=== PATIENT | female | born 1980 | race African-American/Black ===

== ENCOUNTER 2016-08-28 07:17 | Emergency (ER) | payer OTHER ==
[2016-08-28 07:36] VITALS: BMI 39.9
[2016-08-28] MEDS ORDERED: ACETAMINOPHEN INJECTION 100 ML IVPB ONE (07:49)
[2016-08-28] MEDS ORDERED: ACETAMINOPHEN 1000 MG/100 ML VIAL (NON FORMULARY) IVPB ONE (08:07)
[2016-08-28] MEDS ORDERED: SODIUM CHLORIDE 1,000 ML IV STA (08:07)
--- NOTE | 2016-08-28 08:22 | PDOC ---
History of Present Illness - General Chief Complaint: Pain Stated Complaint: ABDOMINAL PAIN (19 WEEKS) Time Seen by Provider: 08/28/16 08:04 - History of Present Illness Initial Comments: 08/28/16 08:21 35-year-old female whose last menstrual period was 04/18, and is 19.5 weeks She gets her care with Dr. Mckeon G3 TAB 1 P1 Patient states she was fine when she went to bed last night She awakened at 5:30 this morning with severe pelvic cramping, nausea and vomiting She denies any vaginal spotting or bleeding, and she denies any fluid from her vagina She denies any recent intercurrent illnesses She denies any dysuria urgency or frequency She states that things of been going well with on her care Past History - Past Medical History Allergies/Adverse Reactions: Allergies Allergy/AdvReac Type Severity Reaction Status Date / Time No Known Allergies Allergy Verified 08/28/16 09:38 Home Medications: Ambulatory Orders Vit/Iron Fumarate/FA [ Tablet] 1 each PO DAILY 08/28/16 Other medical history: PT DENIES MEDICAL HX - Reproductive History Is Patient Now?: Yes (#): 3 Para: 1 Cervical CA: No Dysfunctional Uterine Bleeding: No Ectopic : No Endometrial CA: No Polycystic Ovaries: No Tubal Ligation: No - Psycho/Social/Smoking Cessation Hx Anxiety: No Suicidal Ideation: No Smoking History: Never smoked Information on smoking cessation initiated: No Hx Alcohol Use: No Drug/Substance Use Hx: No *Physical Exam - Vital Signs Last Vital Signs Temp Pulse Resp BP Pulse Ox 98.6 F 102 H 22 108/55 100 08/28/16 07:34 08/28/16 07:34 08/28/16 07:34 08/28/16 07:34 08/28/16 07:34 - Physical Exam Comments: 08/28/16 08:36 Physical exam Last Vital Signs Temp Pulse Resp BP Pulse Ox 98.6 F 102 H 22 108/55 100 08/28/16 07:34 08/28/16 07:34 08/28/16 07:34 08/28/16 07:34 08/28/16 07:34 Patient is alert and answering questions Head is normocephalic and atraumatic Neck supple Lungs clear Heart regular Abdomen- The fundal height is approximately 20 weeks, appropriate for gestational age The abdomen is soft and nontender Vaginal introitus There is no blood or fluid leaking from the vaginal introitus There is no pedal edema Grossly nonfocal neurologic exam ED Treatment Course - LABORATORY CBC & Chemistry Diagram: 08/28/16 08:40 08/28/16 09:08 - RADIOLOGY Radiology Studies Ordered: Category Date Time Status LIMITED US [US] Stat Ultrasound 08/28/16 07:46 Ordered - Medications Given in the ED: ED Medications Discontinued Medications Generic Name Dose Route Start Last Admin Trade Name Justin PRN Reason Stop Dose Admin Acetaminophen 1,000 mg 08/28/16 08:07 08/28/16 08:07 Ofirmev Injection - IVPB 08/28/16 08:08 1,000 mg NOW ONE Administration Medical Decision Making - Medical Decision Making 08/28/16 08:21 Case discussed with - patient 19.5 weeks Will send directly to L&D as per OB right after her ultrasound 08/28/16 08:38 Stat OB ultrasound Single viable intrauterine gestation, 19 weeks 5 days heart rate 137 Posterior placenta Partially visualized structures-no gross sonographic abnormality Amniotic fluid volume normal Cervix is closed and measuring 5.3 cm in length Blood work drawn-will send to L&D Possible labor, threatened AB Transfer up to L&D now as per OB Laboratory Results - last 24 hr 08/28/16 08/28/16 08/28/16 08:40 08:50 09:08 WBC 10.4 H RBC 4.75 Hgb 11.3 Hct 33.4 MCV 70.4 L MCHC 33.7 RDW 16.0 H Plt Count 148 MPV 9.8 Sodium 138 Potassium 3.8 Chloride 104 Carbon Dioxide 25 Anion Gap 9 BUN 3 L Creatinine 0.6 Creat Clearance w eGFR > 60 Random Glucose 110 H Calcium 8.1 L Total Bilirubin 0.2 AST 14 L ALT 19 Alkaline Phosphatase 66 Total Protein 6.6 Albumin 3.0 L Beta HCG, Quant 23973.0 Urine Color Urine Appearance Urine pH Ur Specific [place] Urine Protein Urine Glucose (UA) Urine Ketones Urine Blood Urine Nitrite Urine Bilirubin Urine Urobilinogen Ur Leukocyte Esterase Blood Type O NEGATIVE Antibody Screen Negative Spec Expiration Date 08/28/16 10:32 WBC RBC Hgb Hct MCV MCHC RDW Plt Count MPV Sodium Potassium Chloride Carbon Dioxide Anion Gap BUN Creatinine Creat Clearance w eGFR Random Glucose Calcium Total Bilirubin AST ALT Alkaline Phosphatase Total Protein Albumin Beta HCG, Quant Urine Color Ltyellow Urine Appearance Clear Urine pH 6.0 Ur Specific [place] 1.019 Urine Protein Negative Urine Glucose (UA) Negative Urine Ketones Negative Urine Blood Negative Urine Nitrite Negative Urine Bilirubin Negative Urine Urobilinogen Negative Ur Leukocyte Esterase Negative Blood Type Antibody Screen Spec Expiration Date *DC/Admit/Observation/Transfer Diagnosis at time of Disposition: labor, Threatened - Discharge Dispostion Admit: Yes - Referrals Referrals: Yulia Tim MD [Staff Physician] - (DISCHARGE HOME; DRINK PLENTY OF FLUIDS; PICK PRESCRIPTION AT HER PHARMACY AND TAKE DIRECTED; IF PAIN INCREASES CALL MD; ANY QUESTIONS/PROBLEMS CALL MD OR LABOR AREA ; IF NO CHANGE FOLLOW UP IN OFFICE THIS WEEK;)
[2016-08-28 08:56] LABS: MCH 23.7 pg (25.7-33.7); MCHC 33.7 g/dl (32.0-36.0); MEAN CELL VOLUME 70.4 fl (80-96); MEAN PLT VOLUME 9.8 fl (7.5-11.1); PLATELET COUNT 148 K/MM3 (134-434); WHITE BLOOD COUNT 10.4 K/mm3 (4.0-10.0)
[2016-08-28 09:49] LABS: ANION GAP 9 (8-16); BILIRUBIN,TOTAL 0.2 mg/dL (0.2-1.0); CALCIUM 8.1 mg/dL (8.5-10.1); CO2 25 mmol/L (21-32); CREATININE 0.6 mg/dL (0.55-1.02); GLUCOSE,RANDOM 110 mg/dL (74-106); SGOT/AST 14 U/L (15-37); SGPT/ALT 19 U/L (12-78); TOT PROT 6.6 g/dl (6.4-8.2)
[2016-08-28 10:04] LABS: ALK PHOS 66 U/L (45-117)
[2016-08-28] MEDS ORDERED: AMPICILLIN - 2 GM in SODIUM CHLORIDE 100 ML IVPB ONE (10:30)
[2016-08-28 10:36] VITALS: TEMP 97.5
[2016-08-28 11:44] LABS: URINE APPEARANCE CLEAR; URINE BILIRUBIN NEGATIVE (NEGATIVE); URINE BLOOD NEGATIVE (NEGATIVE); URINE COLOR LTYELLOW; URINE GLUCOSE (UA) NEGATIVE (NEGATIVE); URINE KETONE NEGATIVE (NEGATIVE); URINE LEUK ESTERASE NEGATIVE (NEGATIVE); URINE NITRITE NEGATIVE (NEGATIVE); URINE PROTEIN NEGATIVE (NEGATIVE); URINE UROBILINOGEN NEGATIVE E.U./dl (0.2-1.0)
--- NOTE | 2016-08-28 12:26 | PN ---
Progress Note (short form) - Note Progress Note: 35yo EGA 19.5 weeks EDC 01/23/17 with co right lower abd pain radiating to back and right leg pain no vaginal bleeding pt with c/o urinary freq more than usual. Pt improved after hydration and ancef Vital Signs Period Temp Pulse Resp BP Sys/Muir Pulse Ox Last 24 Hr 97.5 F-98.6 F 83-102 20-22 105-123/55-74 100-100 Laboratory Results - last 24 hr 08/28/16 08/28/16 08/28/16 08:40 08:50 09:08 WBC 10.4 H RBC 4.75 Hgb 11.3 Hct 33.4 MCV 70.4 L MCHC 33.7 RDW 16.0 H Plt Count 148 MPV 9.8 Sodium 138 Potassium 3.8 Chloride 104 Carbon Dioxide 25 Anion Gap 9 BUN 3 L Creatinine 0.6 Creat Clearance w eGFR > 60 Random Glucose 110 H Calcium 8.1 L Total Bilirubin 0.2 AST 14 L ALT 19 Alkaline Phosphatase 66 Total Protein 6.6 Albumin 3.0 L Beta HCG, Quant 85127.0 Urine Color Urine Appearance Urine pH Ur Specific [place] Urine Protein Urine Glucose (UA) Urine Ketones Urine Blood Urine Nitrite Urine Bilirubin Urine Urobilinogen Ur Leukocyte Esterase Blood Type O NEGATIVE Antibody Screen Negative Spec Expiration Date 08/28/16 10:32 WBC RBC Hgb Hct MCV MCHC RDW Plt Count MPV Sodium Potassium Chloride Carbon Dioxide Anion Gap BUN Creatinine Creat Clearance w eGFR Random Glucose Calcium Total Bilirubin AST ALT Alkaline Phosphatase Total Protein Albumin Beta HCG, Quant Urine Color Ltyellow Urine Appearance Clear Urine pH 6.0 Ur Specific [place] 1.019 Urine Protein Negative Urine Glucose (UA) Negative Urine Ketones Negative Urine Blood Negative Urine Nitrite Negative Urine Bilirubin Negative Urine Urobilinogen Negative Ur Leukocyte Esterase Negative Blood Type Antibody Screen Spec Expiration Date VSS afebrile abd soft nt sve lcp no cmt uterus 19cm adnexa wnl ext no edema ass iup at 19.5 week ro uti possible round ligament pain dc home on po abs tylenol prn amoxicillin x 3 days
[2016-08-28 12:49] VITALS: BP 120/73; PULSE 76
== END 2016-08-28 12:30 | disposition home or self-care (01) ==
LOC: JER 07:17
PROC: 3E033NZ Introduction of Analgesics, Hypnotics, Sedatives into Peripheral Vein, Percutaneous Approach (ICD-10-PCS; principal; 2016-08-28)
DX: O20.0 Threatened abortion (principal); Z3A.19 19 weeks gestation of pregnancy
CPT/HCPCS: 36415; 76815-TC; 80053; 81003; 84702; 85027; 86850; 86900; 86901; 87086; 96374; 99283-25

== ENCOUNTER 2017-01-20 04:00 | Inpatient (IN) | payer OTHER ==
--- NOTE | 2017-01-20 05:41 | HP ---
Past Medical History - Primary Care Physician PCP:: Yulia Tim - Admission Chief Complaint: Labor History of Present Illness: 36 yo EDC EGA 39.4 weeks with c/o srom and labor AMA Rh neg Fibroids Sickle cell trait hydraden Pt desires natural plan. No IV, meds limited exams Intermittent monitoring History Source: Patient - Past Medical History ...: 3 ...Para: 1 ...EDC by Sono: 01/23/17 Endocrine: Yes: Other (Hyd) - Past Surgical History Past Surgical History: Yes: None Hx Myomectomy: No Hx Transabdominal Cerclage: No - Smoking History Smoking history: Never smoked - Alcohol/Substance Use Hx Alcohol Use: No History of Substance Use: reports: None - Social History Usual Living Arrangement: Yes: With Spouse History of Recent Travel: No Home Medications - Allergies Allergies/Adverse Reactions: Allergies Allergy/AdvReac Type Severity Reaction Status Date / Time No Known Allergies Allergy Verified 08/28/16 09:38 - Home Medications Home Medications: Ambulatory Orders Vit/Iron Fumarate/FA [ Tablet] 1 each PO DAILY 08/28/16 Review of Systems - Review of Systems Constitutional: reports: No Symptoms Eyes: reports: No Symptoms HENT: reports: No Symptoms Neck: reports: No Symptoms Cardiovascular: reports: No Symptoms Respiratory: reports: No Symptoms Gastrointestinal: reports: No Symptoms Genitourinary: reports: No Symptoms Breasts: reports: No Symptoms Reported Musculoskeletal: reports: No Symptoms Integumentary: reports: No Symptoms Neurological: reports: No Symptoms Endocrine: reports: No Symptoms Hematology/Lymphatic: reports: No Symptoms Psychiatric: reports: No Symptoms Physical Exam - Maternity Constitutional: Yes: Well Nourished, No Distress Neck: Yes: WNL Cardiovascular: Yes: WNL, Regular Rate and Rhythm Lungs: Clear to auscultation Breast(s): Yes: WNL - Abdominal Exam/OB Fundal Height: 39 Number of Fetuses: Single Presentation: Vertex Contractions: Yes Regularity: Regular Intensity: Moderate Monitor Mode: External Decelerations: Early - Vaginal Exam/OB Dilatation (cm): 6-7 Effacement (%): 100 Amniotic Membrane Status: Ruptured Presentation: Vertex/Position Station: -1 - Physical Exam Musculoskeletal: Yes: WNL Extremities: Yes: WNL Edema: No Hemorrhage Risk Assessment - Risk Factors Risk Score: 1 Risk Level: Medium Risk Problem List - Problems (1) Labor established Code(s): [id number] - (2) Spontaneous rupture of membranes Code(s): EHC6136 - Assessment/Plan IUP at 39.4 weeks Cat 1 refusing freq exams refusing monitoring tracing refusing IV plan reviewed AMA Plan continue intermittent monitoring
[2017-01-20 05:46] LABS: BASOPHIL 0.2 % (0-2.0); EOSINOPHIL 0.8 % (0-4.5); MCH 21.5 pg (25.7-33.7); MCHC 32.5 g/dl (32.0-36.0); MEAN CELL VOLUME 66.1 fl (80-96); MEAN PLT VOLUME 9.2 fl (7.5-11.1); NEUTROPHILS 80.1 % (42.8-82.8); PLATELET COUNT 158 K/MM3 (134-434); RDW 20.3 % (11.6-15.6); WHITE BLOOD COUNT 9.9 K/mm3 (4.0-10.0)
[2017-01-20 05:48] VITALS: BMI 34.0
[2017-01-20 06:04] LABS: INR 0.96 (0.82-1.09); PROTHROMBIN TIME (PATIENT) 10.6 SEC (9.98-11.88)
[2017-01-20 06:07] LABS: ACTIVATED PTT 28.3 SECONDS (26.9-34.4)
[2017-01-20 06:11] LABS: ANION GAP 10 (8-16); CALCIUM 8.7 mg/dL (8.5-10.1); CO2 23 mmol/L (21-32); CREATININE 0.6 mg/dL (0.55-1.02); GLUCOSE,RANDOM 104 mg/dL (74-106)
[2017-01-20] MEDS ORDERED: BUTORPHANOL TARTRATE 1 MG/ML VIAL IVPB ONE (08:50)
[2017-01-20] MEDS ORDERED: PROMETHAZINE HCL 25 MG/1 ML VIAL IVPUSH ONE (08:50)
--- NOTE | 2017-01-20 10:56 | PN ---
Ante-Partal Exam - Subjective Subjective: Patient tolerating contractions. Vital Signs: Vital Signs Temperature 98.0 F 01/20/17 07:30 Pulse Rate 106 H 01/20/17 07:30 Respiratory Rate 14 01/20/17 07:30 Blood Pressure 101/59 01/20/17 07:30 O2 Sat by Pulse Oximetry (%) Bleeding: No Headache: No Visual changes: No Right upper quadrant pain: No Pain (scale 1-10): 8 - Contractions Contractions: Yes Regularity: Irregular Intensity: Mod/Strong Monitor Mode: External - Exam during Labor Heart Rate: 145 Variability: Moderate Category: I Exam: Vaginal Dilatation (cm): 9.5 Effacement (%): 90 Amniotic Membrane Status: Ruptured Presentation: Vertex Station: 0 - Assessment/Plan Assessment/Plan: Patient tolerating contractions S/P Stadol and Phenergan around 8am Nurse Material Lister and Social Work spoke with patient at length regarding pt refusal of Vitamin K and Erythromycin eye ointment after delivery - patient and family aware of necessary steps to take after baby born Pt 9cm dilated at this time, not ready to push will re evaluate in 30-45 minutes to see if patient ready to push
[2017-01-20] MEDS ORDERED: DEXTROSE 5%-LACTATED RINGERS 1,000 ML IV SCH (11:15)
--- NOTE | 2017-01-20 12:59 | PN ---
Delivery - Delivery Vaginal Delivery: No Problems Type of Anesthesia: None Episiotomy/Laceration: None, 1st degree (small superficial abrasion - hemostatic - no sutures placed) EBL (cc): 500 Delivery, Single - Stages of Labor Date 1st Stage Initiatied: 01/20/17 Date of Delivery: 01/20/17 Time of Delivery: 12:19 Date Placenta Delivered: 01/20/17 Time Placenta Delivered: 12:38 Placenta: Yes: Spontaneous - Condition of Infant Gender: Male Position: Left, OA - 1 Minute Total Score: 9 5 Minutes Total Score: 10 - [place] Feeding Plan Initial Plan: Exclusive throughout hospitalization Remarks - Remarks Remarks: By the time I arrived, baby had delivered without complication by Nurse Trav from ANDRES position Apgars 9/10 after delayed cord clamping, cord clamped and cut placenta delivered in tact small abrasion noted on posterior vagina, not bleeding, no sutures placed some bleeding noted s/p delivery, bimanual examination performed, blood clots removed from uterus lochia improved oxytocin infusing EBL total 500cc mom stable baby nursing baby to well baby nursery s/p delivery
[2017-01-20] MEDS ORDERED: OXYTOCIN 20 UNITS in 0.9% NS 1,000 ML IV SCH (13:00)
[2017-01-20] MEDS ORDERED: BISACODYL 10 MG SUPP.RECT RC PRN (13:00)
[2017-01-20] MEDS ORDERED: IBUPROFEN 600 MG TABLET (FP) PO PRN (13:00)
[2017-01-20] MEDS ORDERED: METHYLERGONOVINE MALEATE 0.2 MG/1 ML AMP IM PRN (13:00)
[2017-01-20] MEDS ORDERED: BENZOCAINE 28 GM HEMORRHOIDAL OINTMENT TP PRN (13:00)
[2017-01-20] MEDS ORDERED: BENZOCAINE 20% 57 GM BOTTLE TP PRN (13:00)
[2017-01-20] MEDS ORDERED: WITCH HAZEL 50% (TUCKS) 40 PAD/JAR PAD TP PRN (13:00)
[2017-01-20] MEDS ORDERED: ACETAMINOPHEN 325 MG TABLET (FP) PO PRN (13:00)
[2017-01-20 13:28] LABS: ANISOCYTOSIS 2+; HYPOCHROMIA 2+; MICROCYTOSIS 2+; TARGET CELLS 2+
[2017-01-20] MEDS: FERROUS SO4 325 MG TABLET (FP) PO SCH (17:46)
--- NOTE | 2017-01-21 05:26 | PN ---
Post Note - Post Date of Delivery: 01/20/17 Vital Signs: Vital Signs - 24 hr 01/20/17 01/20/17 01/20/17 07:30 12:45 13:00 Temperature 98.0 F Pulse Rate 106 H 95 H Respiratory 14 18 Rate Blood Pressure 101/59 122/75 O2 Sat by Pulse 100 99 Oximetry (%) 01/20/17 01/20/17 01/20/17 13:15 13:30 13:45 Temperature 97.7 F Pulse Rate 97 H 98 H 97 H Respiratory 18 18 18 Rate Blood Pressure 127/75 126/76 127/75 O2 Sat by Pulse 100 100 Oximetry (%) 01/20/17 01/20/17 15:26 17:55 Temperature 98.1 F 98.5 F Pulse Rate 106 H 109 H Respiratory 18 18 Rate Blood Pressure 128/76 116/59 O2 Sat by Pulse Oximetry (%) Labs: Laboratory Results - last 24 hr 01/20/17 01/20/17 01/20/17 04:50 04:50 04:50 WBC 9.9 RBC 5.34 H Hgb 11.5 Hct 35.3 MCV 66.1 L MCH 21.5 L MCHC 32.5 RDW 20.3 H D Plt Count 158 MPV 9.2 Neutrophils % 80.1 Lymphocytes % 12.4 Monocytes % 6.5 Eosinophils % 0.8 Basophils % 0.2 Hypochromic-Microcytic 2+ Anisocytosis 2+ Microcytosis 2+ Target Cells 2+ INR 0.96 PTT (Actin FS) 28.3 Sodium 137 Potassium 4.0 Chloride 104 Carbon Dioxide 23 Anion Gap 10 BUN 5 L D Creatinine 0.6 Random Glucose 104 Calcium 8.7 RPR Titer Blood Type Antibody Screen Screen Baby's Blood Type Unit Expiration Date 01/20/17 01/20/17 01/20/17 04:50 04:50 13:20 WBC RBC Hgb Hct MCV MCH MCHC RDW Plt Count MPV Neutrophils % Lymphocytes % Monocytes % Eosinophils % Basophils % Hypochromic-Microcytic Anisocytosis Microcytosis Target Cells INR PTT (Actin FS) Sodium Potassium Chloride Carbon Dioxide Anion Gap BUN Creatinine Random Glucose Calcium RPR Titer Nonreactive Blood Type O NEGATIVE Antibody Screen Negative Screen Cancelled Baby's Blood Type Cancelled Unit Expiration Date Cancelled - Subjective Subjective: No Complaints - Objective Afebrile: Yes Breast: Not engorged Abdomen: Soft, Non-tender Uterus: Fundus firm, Non-tender Vagina: Scant lochia Extremities: Non-tender - Assessment/Plan (1) Labor established Assessment: S/P Normal Plan: Routine Care
--- NOTE | 2017-01-21 05:26 | DS ---
Physical Exam-REGISTERED NURSE OBSTETRICS Vital Signs: Vital Signs Temperature 98.5 F 01/20/17 17:55 Pulse Rate 109 H 01/20/17 17:55 Respiratory Rate 18 01/20/17 17:55 Blood Pressure 116/59 01/20/17 17:55 O2 Sat by Pulse Oximetry (%) 100 01/20/17 13:30 Constitutional: Yes: Well Nourished, No Distress Neck: Yes: WNL Cardiovascular: Yes: WNL Respiratory: Yes: WNL Gastrointestinal: Yes: WNL ....Post : Yes: Uterus firm, Uterus non-tender Breast(s): Yes: WNL Musculoskeletal: Yes: WNL Edema: No Neurological: Yes: WNL, Alert, Oriented Labs: CBC, BMP 01/20/17 04:50 01/20/17 04:50 Delivery - Delivery Vaginal Delivery: No Problems Type of Anesthesia: None Episiotomy/Laceration: None, 1st degree (small superficial abrasion - hemostatic - no sutures placed) EBL (cc): 500 Delivery, Single - Stages of Labor Date 1st Stage Initiatied: 01/20/17 Time 1st Stage Initiated: 22:00 Date 2nd Stage Initiated: 01/20/17 Time 2nd Stage Initiated: 12:14 Date of Delivery: 01/20/17 Time of Delivery: 12:19 Time Placenta Delivered: 12:38 Placenta: Yes: Spontaneous - Condition of Grain Buyer/Tank Cleaner Present: No Infant Gender: Male Weight: 7 lb 11 oz Position: Left, OA Total Hours ROM (Hrs/Mins): 8/48 - 1 Minute Total Score: 9 5 Minutes Total Score: 10 - Feeding Plan Initial Plan: Exclusive throughout hospitalization Discharge Summary Reason For Visit: LABOR ADMIT Current Active Problems Labor established (Acute) Spontaneous rupture of membranes (Acute) Condition: Good - Instructions Diet, Activity, Other Instructions: Physical activity Resume your normal everyday activity as tolerated no heavy lifting or exercise until seen by your surgeon. You may walk unlimited sang of and climb stairs. You may resume driving the car when you feel safe and comfortable behind the wheel. No sexual activity as instructed. Wound care If you have a bandage, leave it on, and keep dry for 48-72 hours. After that time discard the outer bandage. If they are tapes on the skin under the out of bandage leave them in place. They will peel off in the next 7 to 10 days. Do Not Peel them off. You may shower the day after surgery. If there are tapes present on the skin, you may shower over them. Diet There are no dietary restrictions. Eat healthy, high-fiber foods. Drink 6 to 8 glasses of liquid each day. This will assist in keeping your bowels are regular. Pain management You may take Tylenol or acetaminophen or Ibuprofen (for example, Motrin, Advil etc.) from my pain prescription medication is ordered should be taken as prescribed for moderate to severe pain. Call MD for any of the following: Severe pain not relieved by medication Fever of 101 or higher Excessive bleeding or drainage on dressing Inability to urinate Referrals: Yulia Tim MD [Staff Physician] - Disposition: HOME - Home Medications Comprehensive Discharge Medication List: Ambulatory Orders Vit/Iron Fumarate/FA [ Tablet] 1 each PO DAILY 08/28/16 Ibuprofen [Motrin -] 600 mg PO QID PRN #28 tablet 01/21/17
[2017-01-21 07:26] LABS: MCH 21.7 pg (25.7-33.7); MCHC 32.4 g/dl (32.0-36.0); PLATELET COUNT 137 K/MM3 (134-434); WHITE BLOOD COUNT 14.7 K/mm3 (4.0-10.0)
[2017-01-21 09:39] LABS: ANISOCYTOSIS 1+; MICROCYTOSIS 1+; PLATELET ESTIMATE ADEQUATE (NORMAL)
[2017-01-21] MEDS: FERROUS SO4 325 MG TABLET (FP) PO SCH ×3 (09:47→18:17)
[2017-01-21] MEDS ORDERED: SENNOSIDES/DOCUSATE COMBO (SENNA PLUS) TABLET (UD) PO PRN (22:00)
[2017-01-22] MEDS: FERROUS SO4 325 MG TABLET (FP) PO SCH ×2 (09:25→12:49)
[2017-01-22 09:39] VITALS: BP 124/74; PULSE 87; TEMP 97.8
== END 2017-01-22 13:00 | disposition home or self-care (01) | DRG 560 ==
LOC: JLDR 04:00 → J3W 14:41
PROVIDERS: ADMIT Obstetrics & Gynecology; ATTEND Obstetrics & Gynecology
PROC: 10E0XZZ Delivery of Products of Conception, External Approach (ICD-10-PCS; principal; 2017-01-20)
DX: O70.0 First degree perineal laceration during delivery (principal); Z3A.39 39 weeks gestation of pregnancy; Z37.0 Single live birth; O72.1 Other immediate postpartum hemorrhage
CPT/HCPCS: 36415; 59409; 80048; 85025; 85610; 85730; 86593; 86850; 86900; 86901